=== PATIENT | male | born 1940 | race African-American/Black ===

== ENCOUNTER 2017-06-06 19:03 | Outpatient (CLI) | payer OTHER ==
--- NOTE | 2017-06-07 10:00 | Diagnostic Imaging Report ---
Exam: CT examination of the pelvis. HISTORY: Pain Total DLP equals 393 CTDI equals 8.9 Findings: Multiple contiguous thin section of the abdomen pelvis obtained from lower thorax to pubic symphysis without the administration intravenous or oral contrast material. The study therefore is limited. No prior studies available comparison. The study demonstrates a normal aeration of lung parenchyma the bases mild atelectatic changes pleural thickening appreciated bilaterally There is a evidence for large hiatal hernia. The spleen and liver are intact. The gallbladder is distended. The aorta is calcified. Bilateral renal cysts are noted. The large cyst in the left kidney measures 4.5 cm diameter. Large cyst in the right kidney measures 8.4 cm diameter. No free fluid is noted. There is evidence for atherosclerotic calcification of abdominal aorta. The appendix is intact. The entire colon appeared to be distended with fluid content and air suggestive of ascites. There is no evidence of diverticular disease of diverticulitis. The urinary bladder is distended. The rectum is distended. The prostate gland is enlarged impinging the urinary bladder flow with aphasic direct invasion of the bladder floor is not clear. Clinical correlation and cystoscopy might be helpful. IMPRESSION: Large hiatal hernia most of the stomach appeared to be within the thoracic cavity Bilateral renal cysts Atherosclerosis of the abdominal aorta and iliac vessels Distended the colon with fluid levels, colitis cannot be excluded clinical correlation recommended. Enlarged prostate gland most likely indicating urinary bladder flow reviewed in a bladder distention.
== END 2017-06-06 19:30 | disposition home or self-care (01) ==
LOC: EEVIPCON 19:03 → RAD 19:03
PROVIDERS: ATTEND Internal Medicine
DX: N28.1 Cyst of kidney, acquired (principal); K44.9 Diaphragmatic hernia without obstruction or gangrene; I70.0 Atherosclerosis of aorta